=== PATIENT | female | born 1940 | race Hispanic/Latino ===

== ENCOUNTER → 2019-12-13 14:47 | Outpatient (CLI) | payer MEDICARE, SELFPAY ==
--- NOTE | 2019-12-13 14:51 | DI.RAD.S_ITS ---
PROCEDURE: XR LUMBAR SPINE 2-3V INDICATIONS: PAIN AFTER FALL TECHNIQUE: 3 views of the lumbar spine were acquired. COMPARISON: [facility], , L-SPINE 2-3 VIEWS, 07/01/2012, 10:14. FINDINGS: Bones: 5 [id number] vertebrae are present. Trace multilevel retrolisthesis. Multilevel disc degeneration, most notably and moderate at the L5-S1 level where there also is moderate facet joint arthropathy. No vertebral body compression fractures. No suspicious bony lesions. Soft tissues: Overlying bowel gas pattern is normal. No suspicious soft tissue calcifications. Cholecystectomy clips. IMPRESSION: 1. Multilevel spondylosis. Dictated by: Luis Fernando Laurent [facility] Interpreted: John Gentile MD on 12/13/2019 at 15:58 Approved by: John Gentile M.D. on 12/13/2019 at 17:40
--- NOTE | 2019-12-13 14:51 | DI.RAD.S_ITS ---
PROCEDURE: XR THORACIC SPINE 2V INDICATIONS: PAIN AFTER FALL TECHNIQUE: 3 views of the thoracic spine were acquired. COMPARISON: None. FINDINGS: Bones: No fracture. Discogenic changes. Cervical spondylosis also noted. There is mild diffuse disc space narrowing. Lateral curvature of the spine noted. Soft tissues: No paravertebral stripe thickening. IMPRESSION: No fracture Diffuse discogenic changes Dictated by: Rashad Antoine M.D. on 12/13/2019 at 15:56 Approved by: Rashad Antoine M.D. on 12/13/2019 at 15:57
== END ==
PROVIDERS: Referring Provider Student in an Organized Health Care Education/Training Program; Visit Provider Student in an Organized Health Care Education/Training Program
DX: M54.9 Dorsalgia, unspecified (principal); M47.812 Spondylosis without myelopathy or radiculopathy, cervical region; M48.02 Spinal stenosis, cervical region; M47.816 Spondylosis without myelopathy or radiculopathy, lumbar region; M47.817 Spondylosis without myelopathy or radiculopathy, lumbosacral region
CPT/HCPCS: 72070; 72100

== ENCOUNTER → 2020-01-27 09:27 | Outpatient (CLI) | payer MEDICARE, SELFPAY ==
--- NOTE | 2020-01-27 | DI.MRI.S_ITS ---
PROCEDURE: MR KNEE RT WO CON INDICATIONS: Unspecified fall, initial encounter TECHNIQUE: Noncontrast sagittal PD fast spin echo and T2 fast spin echo with fat saturation, sagittal 3-D FLASH with fat saturation; coronal T1 spin echo and PD fast spin echo with fat saturation, and axial PD fast spin echo with fat saturation through the knee. COMPARISON: None. FINDINGS: Image quality: Excellent. Menisci: Oblique tear involving posterior horn of medial meniscus is seen extending to the inferior articulating surface. Complex tear involving anterior horn of lateral meniscus is also noted extending to superior and inferior articulating surfaces. The meniscal root ligaments appear intact. Cruciate ligaments: The anterior and posterior cruciate ligaments appear intact. Medial structures: There is low to moderate grade MCL sprain near its femoral insertion. The posterior oblique ligament, semimembranosus tendon insertions, oblique popliteal ligament, and meniscocapsular junction appear intact. Visualized portions of the pes anserinus tendons appear normal. No abnormal bursal fluid. Lateral structures: The lateral collateral ligament, long and short heads of the biceps femoris tendon appear intact. The popliteus tendon appears normal; the popliteofibular ligament appears intact. The posterosuperior and anteroinferior popliteomeniscal fascicles appear intact. The arcuate and fabellofibular ligaments appear intact, on either side of the lateral inferior geniculate artery. Iliotibial band appears normal. Anterior structures: The quadriceps and patellar tendons appear intact. Patellar alignment is normal. No femoral trochlear dysplasia or ventral trochlear prominence. No edema in the infrapatellar fat pad. Bones and cartilage: No bone marrow contusions or fractures. 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 Joint space: There is moderate to large amount of joint fluid, no gross loose body.. No Costello's cyst. Normal appearing synovial plicae are incidentally noted. IMPRESSION: 1. Oblique tear involving posterior horn of medial meniscus extending to inferior articulating surface. Complex tear involving anterior horn of lateral meniscus extending to both superior and inferior articulating surfaces. 2. Cruciate ligaments are intact. Low to moderate grade MCL sprain. 3. Moderate tricompartmental osteoarthritis and chondromalacia most prominent in medial femoral tibial compartment. Moderate to large amount of joint fluid. No gross loose body. Dictated by: Marcial Craig M.D. on 01/27/2020 at 11:28 Approved by: Marcial Craig M.D. on 01/27/2020 at 12:00
== END ==
PROVIDERS: Referring Provider Internal Medicine; Visit Provider Internal Medicine
DX: S83.271A Complex tear of lateral meniscus, current injury, right knee, initial encounter (principal); S83.241A Other tear of medial meniscus, current injury, right knee, initial encounter; S83.411A Sprain of medial collateral ligament of right knee, initial encounter; M17.11 Unilateral primary osteoarthritis, right knee; M94.261 Chondromalacia, right knee; W19.XXXA Unspecified fall, initial encounter
CPT/HCPCS: 73721

== ENCOUNTER 2021-01-10 09:21 | Inpatient (IN) | payer MEDICARE, SELFPAY ==
[2021-01-10] VITALS (22 sets, daily range): BP systolic 93–137; BP diastolic 51–96; PULSE 74–126; RESP 18–27; TEMP 36.1–36.7; O2SAT 89–96; BMI 42.0
--- NOTE | 2021-01-10 09:32 | ED.GENADULT ---
HPI - General Adult General Chief complaint: Shortness of Breath/Dyspnea Stated complaint: Weak/Coughing/Poss fever Time Seen by Provider: 01/10/21 09:23 Related Data Previous Rx's Medication Instructions Recorded azithromycin 250 mg tablet See Rx Instructions .ROUTE 09/06/17 .COMPLEX #6 tab furosemide 20 mg tablet (Lasix) 20 mg PO DAILY #30 tab 09/06/17 Allergies Allergy/AdvReac Type Severity Reaction Status Date / Time No Known Drug Allergies Allergy Verified 01/10/21 09:34 Patient History Family History Brother Diabetes mellitus Grandmother Myocardial infarction Mother Diabetes mellitus Myocardial infarction Sister Diabetes mellitus Social History Smoking Status: Former smoker Smoking Status: Former smoker alcohol intake frequency: 0-2 drinks per day Substance Use Type: does not use Exam Initial Vital Signs Initial Vital Signs: Vital Signs Temperature 98.0 F 01/10/21 09:25 Pulse Rate 119 H 01/10/21 09:25 Respiratory Rate 22 01/10/21 09:25 Blood Pressure 121/96 H 01/10/21 09:25 Pulse Oximetry 93 01/10/21 09:25 Course Orders Ordered: ED Orders 01/10/21 09:31 COVID19 -Nasal swab/Pre-Proc Stat 01/10/21 09:33 XR chest 1V Stat EKG-12 Lead Stat Measure peak expiratory flow ONCE RT Consult Eval and Treat Now 01/10/21 09:40 Complete Blood Count AUTO DIFF Stat Comprehensive Metabolic Panel Stat D Dimer Stat Lactate (Lactic Acid) Stat Magnesium Stat NT-proBNP (BNP-Adult 18+) Stat Troponin I Stat 01/10/21 09:51 COVID19 - ADMIT ([employer] swab/PCR) Stat 01/10/21 09:52 Respiratory Panel (Film Array) Stat 01/10/21 10:40 Blood Culture Stat Discontinued Medications Apixaban (Apixaban 5 Mg Tablet) 5 mg PO NOW ONE Stop: 01/10/21 10:23 Last Admin: 01/10/21 10:41 Dose: 5 mg Documented by: POLO Diltiazem HCl (Diltiazem 5 Mg/Ml Sdv) 20 mg IV NOW ONE Stop: 01/10/21 10:23 Last Admin: 01/10/21 10:40 Dose: 20 mg Documented by: POLO Diltiazem HCl (Diltiazem Sr 60 Mg) 60 mg PO NOW ONE Stop: 01/10/21 10:23 Last Admin: 01/10/21 10:41 Dose: 60 mg Documented by: POLO Vital Signs Vital signs: Vital Signs - 8 hr 01/10/21 09:25 01/10/21 09:28 01/10/21 09:30 Temperature 98.0 F Pulse Rate 119 H 110 H 122 H Respiratory Rate 22 25 H Blood Pressure 121/96 H 121/96 H 130/78 Pulse Oximetry 93 91 93 01/10/21 10:00 01/10/21 10:01 01/10/21 10:30 Temperature Pulse Rate 119 H 126 H 111 H Respiratory Rate 27 H 21 25 H Blood Pressure 137/70 Pulse Oximetry 92 90 L 96 01/10/21 10:52 Temperature Pulse Rate 83 Respiratory Rate 25 H Blood Pressure 93/61 Pulse Oximetry 94 Medical Decision Making Lab Data Result diagrams: 01/10/21 09:40 01/10/21 09:40 Labs: Lab Results 01/10/21 01/10/21 01/10/21 Range/Units 09:31 09:40 09:40 WBC 11.0 (4.5-11.0) X10^3/uL RBC 5.36 H (4.0-5.2) X10^6/uL Hgb 15.7 (12.0-16.0) g/dL Hct 46.3 H (36-46) % MCV 86.2 (80-100) fL MCH 29.3 (26-34) PG MCHC 33.9 (30-36) % RDW 14.0 (11.6-14.8) % Plt Count 202 (150-400) X10^3/uL Neut % (Auto) 84.8 H (50-75) % Lymph % (Auto) 9.6 L (25-40) % [place] % (Auto) 5.3 (3-14) % Eos % (Auto) 0.0 L (2-4) % Baso % (Auto) 0.3 (0-2) % Neut # (Auto) 9300 H (6223-6084) /uL Lymph # (Auto) 1100 (2644-8118) /uL [place] # (Auto) 600 (0-900) /uL Eos # (Auto) 0 (0-450) /uL Baso # (Auto) 0 (0-100) /uL D-Dimer (<230) ng/mL Sodium 136 L (137-145) mmol/L Potassium 3.8 (3.4-5.1) mmol/L Chloride 103 (98-107) mmol/L Carbon Dioxide 22 (22-32) mmol/L BUN 16 (7-17) mg/dL Creatinine 0.88 (0.52-1.04) mg/dL Estimated GFR > 60.0 (>60) mL/min BUN/Creatinine Ratio 18.2 (6-22) Glucose 179 H (80-110) mg/dL Lactate (0.7-2.1) mmol/L Calcium 9.1 (8.4-10.2) mg/dL Magnesium 2.1 (1.6-2.3) mg/dL Total Bilirubin 0.8 (0.2-1.3) mg/dL AST 40 H (14-36) IU/L ALT 28 (<35) IU/L Alkaline Phosphatase 74 (38-126) U/L Troponin I < 0.012 (0.01-0.034) ng/mL NT-Pro-B Natriuret Pep 2290 H (<450) pg/mL Total Protein 7.0 (6.3-8.2) g/dL Albumin 3.8 (3.5-5.0) g/dL Globulin 3.2 (1.7-4.1) g/dL Albumin/Globulin Ratio 1.2 (1.0-2.8) SARS-CoV-2 (PCR) Positive H (Negative) 01/10/21 01/10/21 01/10/21 Range/Units 09:40 09:40 09:40 WBC (4.5-11.0) X10^3/uL RBC (4.0-5.2) X10^6/uL Hgb (12.0-16.0) g/dL Hct (36-46) % MCV (80-100) fL MCH (26-34) PG MCHC (30-36) % RDW (11.6-14.8) % Plt Count (150-400) X10^3/uL Neut % (Auto) (50-75) % Lymph % (Auto) (25-40) % [place] % (Auto) (3-14) % Eos % (Auto) (2-4) % Baso % (Auto) (0-2) % Neut # (Auto) (2021-7977) /uL Lymph # (Auto) (6756-0814) /uL [place] # (Auto) (0-900) /uL Eos # (Auto) (0-450) /uL Baso # (Auto) (0-100) /uL D-Dimer 479 H (<230) ng/mL Sodium (137-145) mmol/L Potassium (3.4-5.1) mmol/L Chloride (98-107) mmol/L Carbon Dioxide (22-32) mmol/L BUN (7-17) mg/dL Creatinine (0.52-1.04) mg/dL Estimated GFR (>60) mL/min BUN/Creatinine Ratio (6-22) Glucose (80-110) mg/dL Lactate 2.2 H (0.7-2.1) mmol/L Calcium (8.4-10.2) mg/dL Magnesium Cancelled (1.6-2.3) mg/dL Total Bilirubin (0.2-1.3) mg/dL AST (14-36) IU/L ALT (<35) IU/L Alkaline Phosphatase (38-126) U/L Troponin I Cancelled (0.01-0.034) ng/mL NT-Pro-B Natriuret Pep (<450) pg/mL Total Protein (6.3-8.2) g/dL Albumin (3.5-5.0) g/dL Globulin (1.7-4.1) g/dL Albumin/Globulin Ratio (1.0-2.8) SARS-CoV-2 (PCR) (Negative) 01/10/21 Range/Units 09:51 WBC (4.5-11.0) X10^3/uL RBC (4.0-5.2) X10^6/uL Hgb (12.0-16.0) g/dL Hct (36-46) % MCV (80-100) fL MCH (26-34) PG MCHC (30-36) % RDW (11.6-14.8) % Plt Count (150-400) X10^3/uL Neut % (Auto) (50-75) % Lymph % (Auto) (25-40) % [place] % (Auto) (3-14) % Eos % (Auto) (2-4) % Baso % (Auto) (0-2) % Neut # (Auto) (4563-2077) /uL Lymph # (Auto) (1156-6261) /uL [place] # (Auto) (0-900) /uL Eos # (Auto) (0-450) /uL Baso # (Auto) (0-100) /uL D-Dimer (<230) ng/mL Sodium (137-145) mmol/L Potassium (3.4-5.1) mmol/L Chloride (98-107) mmol/L Carbon Dioxide (22-32) mmol/L BUN (7-17) mg/dL Creatinine (0.52-1.04) mg/dL Estimated GFR (>60) mL/min BUN/Creatinine Ratio (6-22) Glucose (80-110) mg/dL Lactate (0.7-2.1) mmol/L Calcium (8.4-10.2) mg/dL Magnesium (1.6-2.3) mg/dL Total Bilirubin (0.2-1.3) mg/dL AST (14-36) IU/L ALT (<35) IU/L Alkaline Phosphatase (38-126) U/L Troponin I (0.01-0.034) ng/mL NT-Pro-B Natriuret Pep (<450) pg/mL Total Protein (6.3-8.2) g/dL Albumin (3.5-5.0) g/dL Globulin (1.7-4.1) g/dL Albumin/Globulin Ratio (1.0-2.8) SARS-CoV-2 (PCR) Positive H (Negative) Discharge Plan Departure Prescriptions: No Action azithromycin 250 mg tablet See Rx Instructions .ROUTE .COMPLEX Qty: 6 RF: 0 furosemide [Lasix] 20 mg tablet 20 mg PO DAILY Qty: 30 RF: 0
--- NOTE | 2021-01-10 09:33 | DI.RAD.S_ITS ---
PROCEDURE: XR CHEST 1V INDICATIONS: cough TECHNIQUE: One view of the chest was acquired. COMPARISON: [facility], CR, XR CHEST 1V, 09/06/2017, 14:05. FINDINGS: Surgical changes and devices: None. Lungs and pleura: Mild interstitial prominence is seen in both lungs. Mediastinum: Mediastinal contours appear normal. Heart size is mildly enlarged, which may be partially exaggerated due to portable technique. Bones and chest wall: No suspicious bony lesions. Overlying soft tissues appear unremarkable. Degenerative changes are seen in the spine. IMPRESSION: 1. Bilateral interstitial prominence is suspicious for mild edema/heart failure, although an atypical pneumonia could appear similarly. 2. Mild cardiomegaly. Dictated by: Lui Grullon M.D. on 01/10/2021 at 10:07 Approved by: Lui Grullon M.D. on 01/10/2021 at 10:09
[2021-01-10 09:54] LABS: Add Manual Diff / Slide Review NO; Basophils Absolute Auto 0 /uL (0-100); Basophils Percent Auto 0.3 % (0-2); Eosinophils Absolute Auto 0 /uL (0-450); Hematocrit 46.3 % (36-46); Hemoglobin 15.7 g/dL (12.0-16.0); Lymphocytes Absolute Auto 1100 /uL (1100-4500); Lymphocytes Percent Auto 9.6 % (25-40); Mean Corpuscular HGB Conc 33.9 % (30-36); Mean Corpuscular Hemoglobin 29.3 PG (26-34); Mean Corpuscular Volume 86.2 fL (80-100); Monocytes Absolute Auto 600 /uL (0-900); Monocytes Percent Auto 5.3 % (3-14); Neutrophils Absolute Auto 9300 /uL (1500-7000); Neutrophils Percent Auto 84.8 % (50-75); Platelet Count 202 X10^3/uL (150-400); Red Blood Cell Count 5.36 X10^6/uL (4.0-5.2)
[2021-01-10 09:54] LABS: COVID19 -Nasal RAPID POSITIVE (Negative)
[2021-01-10 10:10] LABS: D Dimer 479 ng/mL (<230)
[2021-01-10 10:12] LABS: Alanine Aminotransferase 28 IU/L (<35); Albumin 3.8 g/dL (3.5-5.0); Albumin Globulin Ratio 1.2 (1.0-2.8); Alkaline Phosphatase 74 U/L (38-126); Aspartate Aminotransferase 40 IU/L (14-36); BUN Creatinine Ratio 18.2 (6-22); Bilirubin Total 0.8 mg/dL (0.2-1.3); Blood Urea Nitrogen 16 mg/dL (7-17); Calcium 9.1 mg/dL (8.4-10.2); Carbon Dioxide 22 mmol/L (22-32); Chloride 103 mmol/L (98-107); Estimated Glomerular Filt Rate > 60.0 mL/min (>60); Globulin 3.2 g/dL (1.7-4.1); Glucose 179 mg/dL (80-110); HEMOLYSIS < 15 (0-50); Magnesium 2.1 mg/dL (1.6-2.3); Potassium 3.8 mmol/L (3.4-5.1); Sodium 136 mmol/L (137-145)
[2021-01-10 10:14] LABS: Lactate (Lactic Acid) 2.2 mmol/L (0.7-2.1)
--- NOTE | 2021-01-10 10:15 | ED.GENADULT ---
HPI - General Adult General Chief complaint: Shortness of Breath/Dyspnea Stated complaint: Weak/Coughing/Poss fever Time Seen by Provider: 01/10/21 09:23 Source: patient Mode of arrival: Wheelchair Limitations: no limitations History of Present Illness HPI narrative: 81-year-old woman with no significant medical history presents with a month of cough, exertional dyspnea, loss of taste and smell, and comes in today because of increasing fatigue. She typically sleeps with the head of her bed elevated so has not noticed an increase to orthopnea she does not notice increased lower extremity edema. She is not COVID vaccinated. She describes no specific fevers, has had a low-grade headache, intermittent diarrhea over the last couple of weeks without vomiting. She says over the last couple of days she has noticed an occasional palpitation but no overt chest pain. Related Data Previous Rx's Medication Instructions Recorded azithromycin 250 mg tablet See Rx Instructions .ROUTE 09/06/17 .COMPLEX #6 tab furosemide 20 mg tablet (Lasix) 20 mg PO DAILY #30 tab 09/06/17 Allergies Allergy/AdvReac Type Severity Reaction Status Date / Time No Known Drug Allergies Allergy Verified 01/10/21 09:34 Review of Systems Review of Systems Narrative: Remainder of complete review of systems is otherwise unremarkable except for that included in the HPI. Patient History Family History Brother Diabetes mellitus Grandmother Myocardial infarction Mother Diabetes mellitus Myocardial infarction Sister Diabetes mellitus Social History Smoking Status: Former smoker Smoking Status: Former smoker alcohol intake frequency: 0-2 drinks per day Substance Use Type: does not use Exam Narrative Exam Narrative: General: Healthy appearing, in no acute distress. Able to give a complete and coherent history. Well-nourished well-developed HEENT: Moist mucous membranes, normal sclera with reactive pupils, Neck: No JVD, supple Respiratory: Lungs with bibasilar crackles mid lung field on the left and base is on the right. No significant wheeze and good air movement throughout. Cardiac: Tachycardic and irregular without murmurs, no bruits Abdomen: Soft, nontender, good bowel tones, no flank pain Skin: Warm and dry, no rashes Neurologic: Grossly neurologically intact with no obvious asymmetries or abnormalities Extremities: No trauma, well perfused, no significant lower extremity edema Psych: Cooperative, appropriate insight and affect Initial Vital Signs Initial Vital Signs: Vital Signs Temperature 98.0 F 01/10/21 09:25 Pulse Rate 119 H 01/10/21 09:25 Respiratory Rate 22 01/10/21 09:25 Blood Pressure 121/96 H 01/10/21 09:25 Pulse Oximetry 93 01/10/21 09:25 Course Orders Ordered: ED Orders 01/10/21 09:31 COVID19 -Nasal swab/Pre-Proc Stat 01/10/21 09:33 XR chest 1V Stat EKG-12 Lead Stat Measure peak expiratory flow ONCE RT Consult Eval and Treat Now 01/10/21 09:40 Complete Blood Count AUTO DIFF Stat Comprehensive Metabolic Panel Stat D Dimer Stat Lactate (Lactic Acid) Stat Magnesium Stat NT-proBNP (BNP-Adult 18+) Stat Troponin I Stat 01/10/21 09:51 COVID19 - ADMIT ([employer]GER swab/PCR) Stat 01/10/21 09:52 Respiratory Panel (Film Array) Stat 01/10/21 10:40 Blood Culture Stat Discontinued Medications Apixaban (Apixaban 5 Mg Tablet) 5 mg PO NOW ONE Stop: 01/10/21 10:23 Last Admin: 01/10/21 10:41 Dose: 5 mg Documented by: POLO Diltiazem HCl (Diltiazem 5 Mg/Ml Sdv) 20 mg IV NOW ONE Stop: 01/10/21 10:23 Last Admin: 01/10/21 10:40 Dose: 20 mg Documented by: POLO Diltiazem HCl (Diltiazem Sr 60 Mg) 60 mg PO NOW ONE Stop: 01/10/21 10:23 Last Admin: 01/10/21 10:41 Dose: 60 mg Documented by: POLO Vital Signs Vital signs: Vital Signs - 8 hr 01/10/21 09:25 01/10/21 09:28 01/10/21 09:30 Temperature 98.0 F Pulse Rate 119 H 110 H 122 H Respiratory Rate 22 25 H Blood Pressure 121/96 H 121/96 H 130/78 Pulse Oximetry 93 91 93 01/10/21 10:00 01/10/21 10:01 01/10/21 10:30 Temperature Pulse Rate 119 H 126 H 111 H Respiratory Rate 27 H 21 25 H Blood Pressure 137/70 Pulse Oximetry 92 90 L 96 01/10/21 10:52 01/10/21 11:00 01/10/21 11:01 Temperature Pulse Rate 83 80 79 Respiratory Rate 25 H 24 26 H Blood Pressure 93/61 108/63 Pulse Oximetry 94 94 95 01/10/21 11:30 Temperature Pulse Rate 80 Respiratory Rate 23 Blood Pressure 107/55 L Pulse Oximetry 94 Medical Decision Making Lab Data Lab results narrative: D-dimer is within corrected normal ranges Result diagrams: 01/10/21 09:40 01/10/21 09:40 Labs: Lab Results 01/10/21 01/10/21 01/10/21 Range/Units 09:31 09:40 09:40 WBC 11.0 (4.5-11.0) X10^3/uL RBC 5.36 H (4.0-5.2) X10^6/uL Hgb 15.7 (12.0-16.0) g/dL Hct 46.3 H (36-46) % MCV 86.2 (80-100) fL MCH 29.3 (26-34) PG MCHC 33.9 (30-36) % RDW 14.0 (11.6-14.8) % Plt Count 202 (150-400) X10^3/uL Neut % (Auto) 84.8 H (50-75) % Lymph % (Auto) 9.6 L (25-40) % [place] % (Auto) 5.3 (3-14) % Eos % (Auto) 0.0 L (2-4) % Baso % (Auto) 0.3 (0-2) % Neut # (Auto) 9300 H (9861-0790) /uL Lymph # (Auto) 1100 (7335-6546) /uL [place] # (Auto) 600 (0-900) /uL Eos # (Auto) 0 (0-450) /uL Baso # (Auto) 0 (0-100) /uL D-Dimer (<230) ng/mL Sodium 136 L (137-145) mmol/L Potassium 3.8 (3.4-5.1) mmol/L Chloride 103 (98-107) mmol/L Carbon Dioxide 22 (22-32) mmol/L BUN 16 (7-17) mg/dL Creatinine 0.88 (0.52-1.04) mg/dL Estimated GFR > 60.0 (>60) mL/min BUN/Creatinine Ratio 18.2 (6-22) Glucose 179 H (80-110) mg/dL Lactate (0.7-2.1) mmol/L Calcium 9.1 (8.4-10.2) mg/dL Magnesium 2.1 (1.6-2.3) mg/dL Total Bilirubin 0.8 (0.2-1.3) mg/dL AST 40 H (14-36) IU/L ALT 28 (<35) IU/L Alkaline Phosphatase 74 (38-126) U/L Troponin I < 0.012 (0.01-0.034) ng/mL NT-Pro-B Natriuret Pep 2290 H (<450) pg/mL Total Protein 7.0 (6.3-8.2) g/dL Albumin 3.8 (3.5-5.0) g/dL Globulin 3.2 (1.7-4.1) g/dL Albumin/Globulin Ratio 1.2 (1.0-2.8) Chlamy pneumoniae PCR (Not Detect) Adenovirus (PCR) (Not Detect) B. pertussis DNA (PCR) (Not Detecte) B.parapertussis DNA PCR Coronavirus OC43 (PCR) (Not Detect) Coronavirus HKU1 (PCR) (Not Detect) Coronavirus 229E (PCR) (Not Detect) SARS-CoV-2 (PCR) Positive H (Negative) Coronavirus NL63 (PCR) (Not Detect) Human Metapneumovir PCR (Not Detect) Influenza Type A (PCR) (Not Detect) Influenza Type B (PCR) (Not Detect) M. pneumoniae (PCR) (Not Detect) Parainfluenza 1 (PCR) (Not Detect) Parainfluenza 2 (PCR) (Not Detect) Parainfluenza 3 (PCR) (Not Detect) Parainfluenza 4 (PCR) (Not Detect) RSV (PCR) (Not Detect) Entero/Rhino (PCR) (Not Detect) 01/10/21 01/10/21 01/10/21 Range/Units 09:40 09:40 09:40 WBC (4.5-11.0) X10^3/uL RBC (4.0-5.2) X10^6/uL Hgb (12.0-16.0) g/dL Hct (36-46) % MCV (80-100) fL MCH (26-34) PG MCHC (30-36) % RDW (11.6-14.8) % Plt Count (150-400) X10^3/uL Neut % (Auto) (50-75) % Lymph % (Auto) (25-40) % [place] % (Auto) (3-14) % Eos % (Auto) (2-4) % Baso % (Auto) (0-2) % Neut # (Auto) (7650-6303) /uL Lymph # (Auto) (6893-6636) /uL [place] # (Auto) (0-900) /uL Eos # (Auto) (0-450) /uL Baso # (Auto) (0-100) /uL D-Dimer 479 H (<230) ng/mL Sodium (137-145) mmol/L Potassium (3.4-5.1) mmol/L Chloride (98-107) mmol/L Carbon Dioxide (22-32) mmol/L BUN (7-17) mg/dL Creatinine (0.52-1.04) mg/dL Estimated GFR (>60) mL/min BUN/Creatinine Ratio (6-22) Glucose (80-110) mg/dL Lactate 2.2 H (0.7-2.1) mmol/L Calcium (8.4-10.2) mg/dL Magnesium Cancelled (1.6-2.3) mg/dL Total Bilirubin (0.2-1.3) mg/dL AST (14-36) IU/L ALT (<35) IU/L Alkaline Phosphatase (38-126) U/L Troponin I Cancelled (0.01-0.034) ng/mL NT-Pro-B Natriuret Pep (<450) pg/mL Total Protein (6.3-8.2) g/dL Albumin (3.5-5.0) g/dL Globulin (1.7-4.1) g/dL Albumin/Globulin Ratio (1.0-2.8) Chlamy pneumoniae PCR (Not Detect) Adenovirus (PCR) (Not Detect) B. pertussis DNA (PCR) (Not Detecte) B.parapertussis DNA PCR Coronavirus OC43 (PCR) (Not Detect) Coronavirus HKU1 (PCR) (Not Detect) Coronavirus 229E (PCR) (Not Detect) SARS-CoV-2 (PCR) (Negative) Coronavirus NL63 (PCR) (Not Detect) Human Metapneumovir PCR (Not Detect) Influenza Type A (PCR) (Not Detect) Influenza Type B (PCR) (Not Detect) M. pneumoniae (PCR) (Not Detect) Parainfluenza 1 (PCR) (Not Detect) Parainfluenza 2 (PCR) (Not Detect) Parainfluenza 3 (PCR) (Not Detect) Parainfluenza 4 (PCR) (Not Detect) RSV (PCR) (Not Detect) Entero/Rhino (PCR) (Not Detect) 01/10/21 01/10/21 Range/Units 09:51 09:52 WBC (4.5-11.0) X10^3/uL RBC (4.0-5.2) X10^6/uL Hgb (12.0-16.0) g/dL Hct (36-46) % MCV (80-100) fL MCH (26-34) PG MCHC (30-36) % RDW (11.6-14.8) % Plt Count (150-400) X10^3/uL Neut % (Auto) (50-75) % Lymph % (Auto) (25-40) % [place] % (Auto) (3-14) % Eos % (Auto) (2-4) % Baso % (Auto) (0-2) % Neut # (Auto) (2888-4039) /uL Lymph # (Auto) (3018-7967) /uL [place] # (Auto) (0-900) /uL Eos # (Auto) (0-450) /uL Baso # (Auto) (0-100) /uL D-Dimer (<230) ng/mL Sodium (137-145) mmol/L Potassium (3.4-5.1) mmol/L Chloride (98-107) mmol/L Carbon Dioxide (22-32) mmol/L BUN (7-17) mg/dL Creatinine (0.52-1.04) mg/dL Estimated GFR (>60) mL/min BUN/Creatinine Ratio (6-22) Glucose (80-110) mg/dL Lactate (0.7-2.1) mmol/L Calcium (8.4-10.2) mg/dL Magnesium (1.6-2.3) mg/dL Total Bilirubin (0.2-1.3) mg/dL AST (14-36) IU/L ALT (<35) IU/L Alkaline Phosphatase (38-126) U/L Troponin I (0.01-0.034) ng/mL NT-Pro-B Natriuret Pep (<450) pg/mL Total Protein (6.3-8.2) g/dL Albumin (3.5-5.0) g/dL Globulin (1.7-4.1) g/dL Albumin/Globulin Ratio (1.0-2.8) Chlamy pneumoniae PCR Not detected (Not Detect) Adenovirus (PCR) Not detected (Not Detect) B. pertussis DNA (PCR) Not detected (Not Detecte) B.parapertussis DNA PCR TNP Coronavirus OC43 (PCR) Not detected (Not Detect) Coronavirus HKU1 (PCR) Not detected (Not Detect) Coronavirus 229E (PCR) Not detected (Not Detect) SARS-CoV-2 (PCR) Positive H TNP (Negative) Coronavirus NL63 (PCR) Not detected (Not Detect) Human Metapneumovir PCR Not detected (Not Detect) Influenza Type A (PCR) Not detected (Not Detect) Influenza Type B (PCR) Not detected (Not Detect) M. pneumoniae (PCR) Not detected (Not Detect) Parainfluenza 1 (PCR) Not detected (Not Detect) Parainfluenza 2 (PCR) Not detected (Not Detect) Parainfluenza 3 (PCR) Not detected (Not Detect) Parainfluenza 4 (PCR) Not detected (Not Detect) RSV (PCR) Not detected (Not Detect) Entero/Rhino (PCR) Not detected (Not Detect) Imaging Data Chest x-ray: Radiologist's Impression: FINDINGS: Surgical changes and devices: None. Lungs and pleura: Mild interstitial prominence is seen in both lungs. Mediastinum: Mediastinal contours appear normal. Heart size is mildly enlarged, which may be partially exaggerated due to portable technique. Bones and chest wall: No suspicious bony lesions. Overlying soft tissues appear unremarkable. Degenerative changes are seen in the spine. IMPRESSION: 1. Bilateral interstitial prominence is suspicious for mild edema/heart failure, although an atypical pneumonia could appear similarly. 2. Mild cardiomegaly. Dictated by: Lui Grullon M.D. on 01/10/2021 at 10:07 ECG Data Interpretation: Atrial fibrillation at a rate of 115 Slight left axis deviation No acute ischemic changes MDM Narrative Medical decision making narrative: 81-year-old woman with minimal past medical history presents with new onset atrial fibrillation in the setting of COVID pneumonia. Oxygen saturations are at 93 on room air and dropped to 89-90 with exertion. Cough has been present for about a month and she was having difficulty with loss of taste about a month ago. I suspect that she is on the recovering and of her COVID pneumonia and the new atrial fibrillation was a consequence of her COVID infection. She has mild symptoms of congestive heart failure and no symptoms of impending respiratory failure. Care is reviewed with Dr Renee, who accepts admit. Discharge Plan Departure Patient Disposition: Admitted As Inpatient Clinical Impression: Atrial fibrillation with rapid ventricular response, Congestive heart failure, Pneumonia due to 2019 novel coronavirus Admit Date/Time: 01/10/21 11:59 Admit Provider: Beau Renee
[2021-01-10 10:24] LABS: NT-proBNP (BNP-Adult 18+) 2290 pg/mL (<450); Troponin I < 0.012 ng/mL (0.01-0.034)
[2021-01-10] MEDS: dilTIAZem 5 MG/ML SDV 20 MG IV (10:40)
[2021-01-10] MEDS: APIXABAN 5 MG TABLET PO ×2 (10:41→20:57)
[2021-01-10] MEDS: dilTIAZem SR 60 MG PO (10:41)
[2021-01-10 10:47] LABS: COVID19 - ADMIT (NP swab/PCR) POSITIVE (Negative)
[2021-01-10 11:21] LABS: Adenovirus Not Detected (Not Detect); Bordetella pertussis Not Detected (Not Detecte); Chlamydophila pneumoniae Not Detected (Not Detect); Coronavirus 229E Not Detected (Not Detect); Coronavirus HKU1 Not Detected (Not Detect); Coronavirus NL 63 Not Detected (Not Detect); Coronavirus OC43 Not Detected (Not Detect); Human Metapneumovirus Not Detected (Not Detect); Human Rhinovirus/Enterovirus Not Detected (Not Detect); Influenza A Not Detected (Not Detect); Influenza B Not Detected (Not Detect); Mycoplasma pneumoniae Not Detected (Not Detect); Parainfluenza Virus 1 Not Detected (Not Detect); Parainfluenza Virus 2 Not Detected (Not Detect); Parainfluenza Virus 3 Not Detected (Not Detect); Parainfluenza Virus 4 Not Detected (Not Detect); Respiratory Syncytial Virus Not Detected (Not Detect)
[2021-01-10 11:49] LABS: Reflexed Lactate in 2 Hours Y
[2021-01-10] MEDS: FUROSEMIDE 20 MG/2 ML VIAL IV ×2 (14:03→20:57)
[2021-01-10] MEDS: REMDESIVIR 200 MG in SODIUM CHLORIDE 0.9% 210 ML 250 ML IV (14:05)
[2021-01-10] MEDS: DEXAMETHASONE 10 MG/ML VIAL 6 MG IV (14:05)
[2021-01-10 14:15] LABS: TSH w/ Reflex to FT4 1.25 uIU/mL (0.47-4.68)
[2021-01-10 14:36] LABS: Lactate 2HR (Lactic Acid Rflx) 1.3 mmol/L (0.7-2.1)
--- NOTE | 2021-01-10 14:53 | PC.NURSE ---
1245 Pt to room 219 via w/c -able to transfer self to bed, change clothes, and is now resting comfortable. Oriented Pt to room, call light, bed controls, and tv controls. Bed alarm on for safety-Pt has had recent falls. SCD's on and running. Pt agrees to call for assistance as needed.
--- NOTE | 2021-01-10 18:09 | PM.HP.1 ---
History of Present Illness History of Present Illness Date Patient Seen: 01/10/21 Time Patient Seen: 14:00 Chief complaint: Weak/Coughing/Poss fever Narrative: 81W with no significant PMH who presents with a month of cough and shortness of breath. She notes this started weeks ago. She has not noted fever. She is not vaccinated against COVID. She has noted worsening lower extremity swelling and swelling in her belly. She has been having difficulty sleeping lying flat because of shortness of breath, and becomes short of breath with exertion. She has some chest pressure days ago, but none today. She has noted palpitations. She has had diarrhea and loss of smell. She has not been seen for these symptoms. Not tested for COVID. She is not on medications. In the ED workup was done, she was noted to have no fever, tachycardia in the 120s, respiratory rate in the 20s, sat as low as 90% on room air. She was placed on 2L NC. EKG showed afib with RVR. She was given IV diltiazem, then oral diltiazem. COVID+. Labs notable for WBC 11, creatinine 0.88, lactate 2.2 improved to 1.3, trop negative, BNP 2290. Respiratory panel negative. She was admitted for further treatment and evaluation. Patient History Family & Social History Family History Brother Diabetes mellitus Grandmother Myocardial infarction Mother Diabetes mellitus Myocardial infarction Sister Diabetes mellitus Social History: household members children Prior Living Arrangements House Safety & Behavioral: Feels Safe in Current Yes Environment Been Physically Hurt or No Threatened By a Person Suicidal Ideation Description None Tobacco & Substance use: Tobacco type cigarettes Smoking Status Former smoker alcohol intake never alcohol intake frequency 0-2 drinks per day Substance Use Type does not use Meds Home Medications and Allergies Home Medications Medication Instructions Recorded Confirmed Type No Known Home Medications 01/10/21 01/10/21 History Allergies Allergy/AdvReac Type Severity Reaction Status Date / Time No Known Drug Allergies Allergy Verified 01/10/21 09:34 Review of Systems Review of Systems Narrative: 14 systems reviewed and negative aside from what is noted in HPI Exam Vital Signs (past 8 hours): - 01/10/21 10:30 01/10/21 10:52 01/10/21 11:00 Temperature Pulse Rate 111 H 83 80 Respiratory Rate 25 H 25 H 24 Blood Pressure 93/61 Pulse Oximetry 96 94 94 01/10/21 11:01 01/10/21 11:30 01/10/21 12:00 Temperature Pulse Rate 79 80 74 Respiratory Rate 26 H 23 23 Blood Pressure 108/63 107/55 L 109/68 Pulse Oximetry 95 94 95 01/10/21 12:30 01/10/21 12:45 01/10/21 14:09 Temperature 97 F L Pulse Rate 81 86 Respiratory Rate 24 20 Blood Pressure 107/68 112/51 L Pulse Oximetry 95 94 94 01/10/21 17:01 01/10/21 17:10 Temperature 97.0 F L Pulse Rate 88 Respiratory Rate 24 Blood Pressure 119/75 Pulse Oximetry 94 Oxygen Delivery Method Nasal Cannula Oxygen Flow Rate 2 Narrative Exam Narrative: GEN: no acute distress HEENT: moist mucous membranes, PERRL CV: tachcyardic, irregular, no murmurs PULM: coarse breath sounds, bilateral crackles, no wheezes ABD: soft, nontender, nondistended, no organomegaly, normal bowel sounds EXT: trace edema bilaterally SKIN: no rashes noted, warm and dry NEURO: no focal deficits noted PSYCH: pleasant, cooperative, anxious Objective Labs Result Diagrams: 01/10/21 09:40 01/10/21 09:40 Labs: Laboratory Results - last 24 hr 01/10/21 01/10/21 01/10/21 09:31 09:40 09:40 WBC 11.0 RBC 5.36 H Hgb 15.7 Hct 46.3 H MCV 86.2 MCH 29.3 MCHC 33.9 RDW 14.0 Plt Count 202 Neut % (Auto) 84.8 H Lymph % (Auto) 9.6 L [place] % (Auto) 5.3 Eos % (Auto) 0.0 L Baso % (Auto) 0.3 Neut # (Auto) 9300 H Lymph # (Auto) 1100 [place] # (Auto) 600 Eos # (Auto) 0 Baso # (Auto) 0 D-Dimer Sodium 136 L Potassium 3.8 Chloride 103 Carbon Dioxide 22 BUN 16 Creatinine 0.88 Estimated GFR > 60.0 BUN/Creatinine Ratio 18.2 Glucose 179 H Lactate Calcium 9.1 Magnesium 2.1 Total Bilirubin 0.8 AST 40 H ALT 28 Alkaline Phosphatase 74 Troponin I < 0.012 NT-Pro-B Natriuret Pep 2290 H Total Protein 7.0 Albumin 3.8 Globulin 3.2 Albumin/Globulin Ratio 1.2 TSH Chlamy pneumoniae PCR Adenovirus (PCR) B. pertussis DNA (PCR) B.parapertussis DNA PCR Coronavirus OC43 (PCR) Coronavirus HKU1 (PCR) Coronavirus 229E (PCR) SARS-CoV-2 (PCR) Positive H Coronavirus NL63 (PCR) Human Metapneumovir PCR Influenza Type A (PCR) Influenza Type B (PCR) M. pneumoniae (PCR) Parainfluenza 1 (PCR) Parainfluenza 2 (PCR) Parainfluenza 3 (PCR) Parainfluenza 4 (PCR) RSV (PCR) Entero/Rhino (PCR) 01/10/21 01/10/21 01/10/21 09:40 09:40 09:40 WBC RBC Hgb Hct MCV MCH MCHC RDW Plt Count Neut % (Auto) Lymph % (Auto) [place] % (Auto) Eos % (Auto) Baso % (Auto) Neut # (Auto) Lymph # (Auto) [place] # (Auto) Eos # (Auto) Baso # (Auto) D-Dimer 479 H Sodium Potassium Chloride Carbon Dioxide BUN Creatinine Estimated GFR BUN/Creatinine Ratio Glucose Lactate 2.2 H Calcium Magnesium Cancelled Total Bilirubin AST ALT Alkaline Phosphatase Troponin I Cancelled NT-Pro-B Natriuret Pep Total Protein Albumin Globulin Albumin/Globulin Ratio TSH Chlamy pneumoniae PCR Adenovirus (PCR) B. pertussis DNA (PCR) B.parapertussis DNA PCR Coronavirus OC43 (PCR) Coronavirus HKU1 (PCR) Coronavirus 229E (PCR) SARS-CoV-2 (PCR) Coronavirus NL63 (PCR) Human Metapneumovir PCR Influenza Type A (PCR) Influenza Type B (PCR) M. pneumoniae (PCR) Parainfluenza 1 (PCR) Parainfluenza 2 (PCR) Parainfluenza 3 (PCR) Parainfluenza 4 (PCR) RSV (PCR) Entero/Rhino (PCR) 01/10/21 01/10/21 01/10/21 09:40 09:51 09:52 WBC RBC Hgb Hct MCV MCH MCHC RDW Plt Count Neut % (Auto) Lymph % (Auto) [place] % (Auto) Eos % (Auto) Baso % (Auto) Neut # (Auto) Lymph # (Auto) [place] # (Auto) Eos # (Auto) Baso # (Auto) D-Dimer Sodium Potassium Chloride Carbon Dioxide BUN Creatinine Estimated GFR BUN/Creatinine Ratio Glucose Lactate Calcium Magnesium Total Bilirubin AST ALT Alkaline Phosphatase Troponin I NT-Pro-B Natriuret Pep Total Protein Albumin Globulin Albumin/Globulin Ratio TSH 1.25 Chlamy pneumoniae PCR Not detected Adenovirus (PCR) Not detected B. pertussis DNA (PCR) Not detected B.parapertussis DNA PCR TNP Coronavirus OC43 (PCR) Not detected Coronavirus HKU1 (PCR) Not detected Coronavirus 229E (PCR) Not detected SARS-CoV-2 (PCR) Positive H TNP Coronavirus NL63 (PCR) Not detected Human Metapneumovir PCR Not detected Influenza Type A (PCR) Not detected Influenza Type B (PCR) Not detected M. pneumoniae (PCR) Not detected Parainfluenza 1 (PCR) Not detected Parainfluenza 2 (PCR) Not detected Parainfluenza 3 (PCR) Not detected Parainfluenza 4 (PCR) Not detected RSV (PCR) Not detected Entero/Rhino (PCR) Not detected 01/10/21 14:15 WBC RBC Hgb Hct MCV MCH MCHC RDW Plt Count Neut % (Auto) Lymph % (Auto) [place] % (Auto) Eos % (Auto) Baso % (Auto) Neut # (Auto) Lymph # (Auto) [place] # (Auto) Eos # (Auto) Baso # (Auto) D-Dimer Sodium Potassium Chloride Carbon Dioxide BUN Creatinine Estimated GFR BUN/Creatinine Ratio Glucose Lactate 1.3 Calcium Magnesium Total Bilirubin AST ALT Alkaline Phosphatase Troponin I NT-Pro-B Natriuret Pep Total Protein Albumin Globulin Albumin/Globulin Ratio TSH Chlamy pneumoniae PCR Adenovirus (PCR) B. pertussis DNA (PCR) B.parapertussis DNA PCR Coronavirus OC43 (PCR) Coronavirus HKU1 (PCR) Coronavirus 229E (PCR) SARS-CoV-2 (PCR) Coronavirus NL63 (PCR) Human Metapneumovir PCR Influenza Type A (PCR) Influenza Type B (PCR) M. pneumoniae (PCR) Parainfluenza 1 (PCR) Parainfluenza 2 (PCR) Parainfluenza 3 (PCR) Parainfluenza 4 (PCR) RSV (PCR) Entero/Rhino (PCR) Assessment & Plan Assessment & Plan narrative: Ms. Yates is a 81W with no known PMH who presents with progressive sob, found to have CHF exacerbation, COVID+, and afib with RVR. 1. Acute respiratory failure from acute CHF exacerbation and COVID pneumonia -short of breath, with o2 sat of 90% improved on 2L nc -xray shows interstitical prominence consistent with pulmonary edema vs atypical pneumonia, also cardiomegaly -ordered for IV lasix, fluid restriction, I/O monitoring, low salt diet for CHF -ordered for IV remdesivir and IV decadron for COVID -patient unfortunately unvaccinated for COVID -wean oxygen as able 2. Afib with rvr -new diagnosis for patient -tsh pending -afib may be in setting of infection -ordered for eliquis with CHADSVAS2 at least 3 -rate improved with IV dilt, with CHF will switch to metoprolol 3. Morbid obesity, bmi 42 -follow up with PCP for outpatient lifestyle modifications DIET: low salt, fluid restriction NO IVF DVT ppx: fully anticoagulated on apixaban CODE: Full, proxy is German Lind, son I have utilized all available immediate resources to obtain, update, or review the patient's current medications. Time Spent With Patient Critical Care time: I spent a total of [] minutes of critical care time on this patient's care today; this time is exclusive of procedural time. Quality VTE Deep Vein Thrombosis/Pulmonary Embolism Present on Admission: No
[2021-01-11] VITALS (8 sets, daily range): BP systolic 107–135; BP diastolic 66–85; PULSE 70–95; RESP 17–20; TEMP 35.4–35.9; O2SAT 92–100
[2021-01-11 05:23] LABS: Add Manual Diff / Slide Review NO; Basophils Absolute Auto 0 /uL (0-100); Basophils Percent Auto 0.4 % (0-2); Eosinophils Absolute Auto 0 /uL (0-450); Hematocrit 45.7 % (36-46); Hemoglobin 15.3 g/dL (12.0-16.0); Lymphocytes Absolute Auto 900 /uL (1100-4500); Lymphocytes Percent Auto 11.9 % (25-40); Mean Corpuscular HGB Conc 33.5 % (30-36); Mean Corpuscular Hemoglobin 28.9 PG (26-34); Mean Corpuscular Volume 86.3 fL (80-100); Monocytes Absolute Auto 600 /uL (0-900); Monocytes Percent Auto 7.3 % (3-14); Neutrophils Absolute Auto 6200 /uL (1500-7000); Neutrophils Percent Auto 80.4 % (50-75); Platelet Count 206 X10^3/uL (150-400); Red Cell Distribution Width 13.9 % (11.6-14.8); White Blood Cell Count 7.8 X10^3/uL (4.5-11.0)
[2021-01-11 05:33] LABS: BUN Creatinine Ratio 32.4 (6-22); Blood Urea Nitrogen 24 mg/dL (7-17); Calcium 9.1 mg/dL (8.4-10.2); Carbon Dioxide 24 mmol/L (22-32); Chloride 104 mmol/L (98-107); Estimated Glomerular Filt Rate > 60.0 mL/min (>60); Glucose 156 mg/dL (80-110); HEMOLYSIS < 15 (0-50); Magnesium 2.1 mg/dL (1.6-2.3); Potassium 3.8 mmol/L (3.4-5.1); Sodium 136 mmol/L (137-145)
[2021-01-11] MEDS: REMDESIVIR 100 MG in SODIUM CHLORIDE 0.9% 230 ML 250 ML IV (08:50)
[2021-01-11] MEDS: FUROSEMIDE 20 MG/2 ML VIAL 40 MG IV (08:51)
[2021-01-11] MEDS: APIXABAN 5 MG TABLET PO (08:51)
[2021-01-11] MEDS: METOPROLOL ER 50 MG TABLET PO (08:51)
[2021-01-11] MEDS: DEXAMETHASONE 10 MG/ML VIAL 6 MG IV (08:51)
--- NOTE | 2021-01-11 09:20 | P.DS_ITS ---
History of Present Illness History of Present Illness Chief complaint: Weak/Coughing/Poss fever Narrative: 81W with no significant PMH who presents with a month of cough and shortness of breath. She notes this started weeks ago. She has not noted fever. She is not vaccinated against COVID. She has noted worsening lower extremity swelling and swelling in her belly. She has been having difficulty sleeping lying flat because of shortness of breath, and becomes short of breath with exertion. She has some chest pressure days ago, but none today. She has noted palpitations. She has had diarrhea and loss of smell. She has not been seen for these symptoms. Not tested for COVID. She is not on medications. In the ED workup was done, she was noted to have no fever, tachycardia in the 120s, respiratory rate in the 20s, sat as low as 90% on room air. She was placed on 2L NC. EKG showed afib with RVR. She was given IV diltiazem, then oral diltiazem. COVID+. Labs notable for WBC 11, creatinine 0.88, lactate 2.2 i mproved to 1.3, trop negative, BNP 2290. Respiratory panel negative. She was admitted for further treatment and evaluation. Discharge Providers Provider Date of admission: 01/10/21 11:59 Discharge Date: 01/11/21 Consults: 01/10/21 13:55 Consult to Dietitian, Adult Routine Comment: Reason For Exam: scored low MNA Discharge provider: Beau Renee MD Summary Hospital Course Discharge Diagnosis: 1. Acute hypoxemic respiratory failure 2. Acute CHF exacerbation 3. Acute Covid pneumonia 4. Atrial fibrillation with RVR 5. Morbid obesity, BMI 42 Hospital Course: Ms. Yates was admitted with progressive worsening shortness of breath. She was found to have a new CHF exacerbation. She was also found to be in new atrial fibrillation with RVR. She was found to be COVID positive and did require oxygen. She was started on remdesivir and dexamethasone and had good improvement. She was diuresed with lasix. Her CHADSVASC2 was elevated and she was started on eliquis, and placed on metoprolol and her heart rate improved. She was feeling much better the next day and O2 sats were 94% on room air. Discussion was had with cardiology who recommended close follow up and outpatient ECHO. She is recommended to get the COVID vaccine when asypmtomatic. She is recommended to isolate for at least one week. She should follow up with her PCP within one week. Exam Vital Signs (past 8 hours): Oxygen Delivery Method Nasal Cannula Oxygen Flow Rate 0 Narrative Exam Narrative: GEN: no acute distress HEENT: moist mucous membranes, PERRL CV: irregular, no murmurs PULM: clear bilaterally ABD: soft, nontender, nondistended, no organomegaly, normal bowel sounds EXT: no edema SKIN: no rashes noted, warm and dry NEURO: no focal deficits noted PSYCH: pleasant, cooperative, anxious Objective Labs Result Diagrams: 01/11/21 05:01 01/11/21 05:01 [facility] Family History Brother Diabetes mellitus Grandmother Myocardial infarction Mother Diabetes mellitus Myocardial infarction Sister Diabetes mellitus Social History household members: children Smoking Status: Former smoker alcohol intake: never Discharge Plan Discharge Plan Patient Disposition: Home Provider Discharge Comment: Ms. Yates came in with shortness of breath. She was found to have new congestive heart failure. She also had a new heart arrhythmia called atrial fibrillation. She was started on new medicine for this, eliquis to lower the risk of having a stroke, lasix to help keep the fluid from building up, metoprolol to help keep the heart rate under control. She should follow up with an outpatient ultrasound of her heart, and will be referred to cardiology for this. She did have COVID, she is recommended to isolate for another week, and was encouraged to get the vaccine when she is asymptomatic. Please call at [phone] Delgado wants to see you within a week of being discharged. Discharge orders & Medications Prescriptions: New metoprolol succinate 50 mg Tablet Extended Release 24 Hr 50 mg PO DAILY Qty: 30 RF: 0 Eliquis 5 mg Tablet 5 mg PO BID Qty: 60 RF: 0 furosemide [Lasix] 20 mg tablet 20 mg PO DAILY Qty: 30 RF: 0 Medication counseling provided by Pharmacist: No Follow up/Referrals: Shelley Delgado MD [Physician] - (new afib and chf diagnosis, per Dr. Delgado follow up within one week, ) Diet/Activity/Treatments Diet: Low-sodium Visit Report/Discharge Packet Instructions: Heart-Healthy Diet, DI for Heart Failure, DI for Atrial Fibrillation, Furosemide, Metoprolol, DI for COVID-19 (Suspected or Confirmed ), About the COVID-19 Vaccine, Covid-19 Antibody Treatment Discharge Instructions Quality VTE Deep Vein Thrombosis/Pulmonary Embolism Present on Admission: No MIPS - DC The patient has current or prior documentation of left ventricular ejection fraction (LVEF) less than 40%, or moderate or severely depressed left ventricular systolic function.: No
--- NOTE | 2021-01-11 10:12 | PC.NURSE ---
Patient is alert and oriented x3, she denies pain. Up in chair eating breakfast. Lung sounds clear to auscultation. She is trialing on RA and her sats were 92%. Up with SBA to the bathroom, she is voiding fine. CORPORATE TRAVEL COUNSELOR states that patient did have a bit of a cough when ambulating to the bathroom. She appears to be comfortable now. Will help her to the bathroom in a few minutes and help her back to bed as she states that she is tired.
--- NOTE | 2021-01-11 13:37 | PC.NURSE ---
Pt IV removed. Pt is packed up and ready to go. Went over d/c instructions with Pt-discussed d/c meds, time of last and next dose, reviewed side effects of new meds: increased risk of bleeding, hypotension, increased urine output. Also discussed CHF guidelines sheet, and when to call the MD, Calling the Mail Courier to make a follow up appointment within a week, following up with her PCP, low fat low sodium diet, weighing herself daily, getting up slowly after taking her beta neeta. We also discussed remaining in isolation for the next week and until all COVID symptoms subside. Reviewed stroke education. Reviewed COVID general information and Vaccine information. Pt denies further questions and states she has lots she needs to do including getting her nails done. Reminded Pt once again that she has COVID and needs to remain in isolation for at least a week and that she must wear a mask or she is putting other people at risk for getting COVID. Pt did not respond to this recommendation and stated she would call when her sister arrives to take her home.
--- NOTE | 2021-01-11 16:22 | CM.DPC ---
DCP/Brief: Reviewed chart. Patient is a 81yr old female admitted to [facility] with fever and cough. Patient currently COVID positive. No PCP listed. Primary payor is 1)Medicare 2)[employer]. Patient medically stable for discharge home today. Patient with COVID and instructed to continue isolation when she returns home. Per RN patient with no d/c planning needs. P: Home today. KJS Discharge Planning/Care Management Advanced directive, confirm from FAMILY Start: 01/10/21 13:56 Freq: Q24H Status: Discharge Protocol: Document 01/10/21 13:57 MARISELA (Rec: 01/10/21 13:57 MARISELA [id number]) Advance Directive, confirm on record Time 13:57 Person contacted vinh Reji received No CM Discharge Assessment Start: 01/11/21 16:20 Freq: Status: Discharge Protocol: Document 01/11/21 16:20 KJS (Rec: 01/11/21 16:21 KJS [id number]) Discharge Planning Assessment Assigned Estimator Binding SIMON Harris Contact Information Vinh Oskar (sister) # Advance Directives? Yes Advance Directives on File No History Provided By Medical Record Prior Living Arrangements House Household Members children Independent with ADL's Yes Is patient alert and oriented? Yes Barriers to Discharge No Discharge Plan Home Transportation Arrangement Family Referrals Initiated None needed Review Status In Process Next Review Type Continued Stay Review
== END 2021-01-11 14:43 | disposition home or self-care (01) | DRG 177 ==
LOC: ED 10:33 → AC 12:00
PROVIDERS: Admitting Provider Internal Medicine; Emergency Provider Emergency Medicine; Referring Provider Emergency Medicine; Visit Provider Internal Medicine
DX: U07.1 COVID-19 (principal); J12.82 Pneumonia due to coronavirus disease 2019; J96.01 Acute respiratory failure with hypoxia; Z68.41 Body mass index [BMI] 40.0-44.9, adult; I50.9 Heart failure, unspecified; I48.91 Unspecified atrial fibrillation; E66.01 Morbid (severe) obesity due to excess calories; Z87.891 Personal history of nicotine dependence
CPT/HCPCS: 36415; 71045; 80048; 80053; 83605; 83735; 83880; 84443; 84484; 85025; 85379; 87040; 87633; 87635; 93005; 94760; 94762; 96374; 99284; C9803; J1100; J1940

== ENCOUNTER 2021-06-17 06:49 | Emergency (ER) | payer MEDICARE, SELFPAY ==
[2021-01-10 13:46] VITALS: BMI 42.0
[2021-06-17 06:57] VITALS: BP 219/98; PULSE 80; RESP 18; TEMP 36.3; O2SAT 98
--- NOTE | 2021-06-17 07:01 | PC.NURSE ---
pt states her left knee started hurting yesterday and the pain has increased in severity over the night. states last week while walking she felt a sharp pain shoot up her leg, she has been going to the chiropractor for the knee, she feels like something is blown up in her leg, no obvious swelling or deformity, denies any injury
--- NOTE | 2021-06-17 07:21 | ED.LOWEXIN ---
HPI - Extremity Injury (Lower) General Chief Complaint: Extremity Injury, Lower Stated Complaint: left knee swollen/pain x1 day Time Seen by Provider: 06/17/21 07:21 Source: patient Mode of arrival: Wheelchair History of Present Illness HPI Narrative: Patient is a 81-year-old female history of hypertension atrial fibrillation not taking her Eliquis, congestive heart failure presenting today with left knee pain. 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 She started noticing some knee pain yesterday but this morning she said it is quite swollen and unable to bear weight. She denies any injury. She now in the emergency department complaining of a headache, she previously did not have a headache. She is not sensitive to light or noise. She does typically get headaches. She denies any chest pain shortness of breath no palpitations. Denies any numbness tingling or weakness. Patient was admitted January 2021 for new onset atrial fibrillation and congestive heart failure she was placed on Lasix metoprolol and Eliquis. She says she has stopped those medications and started taking supplements. She does not want take Eliquis afraid of the side effects of but she is taking an aspirin daily. Related Data Previous Rx's Medication Instructions Recorded apixaban 5 mg tablet (Eliquis) 5 mg PO BID #60 tab 01/11/21 furosemide 20 mg tablet (Lasix) 20 mg PO DAILY #30 tab 01/11/21 metoprolol succinate 50 mg 50 mg PO DAILY #30 tab 01/11/21 tablet,extended release 24 hr Allergies Allergy/AdvReac Type Severity Reaction Status Date / Time No Known Drug Allergies Allergy Verified 01/10/21 09:34 Review of Systems Review of Systems Narrative: GENERAL: Denies chills, fatigue, malaise, fever, sweats, travel HEENT: Denies sinus pain, ear pain, sore throat, difficulty swallowing, neck pain RESPIRATORY: Denies dyspnea, cough, wheezing, hemoptysis, sputum. CARDIOVASCULAR: History of AFib and congestive heart failure, see HPI GASTROINTESTINAL: Denies nausea, vomiting, abdominal pain, diarrhea, constipation, melena. : Denies dysuria, frequency, incontinence, hematuria, urinary retention, flank pain. MUSCULOSKELETAL: Left knee pain, see HPI SKIN: No rash, no erythema, no pruritus NEUROLOGIC: Denies weakness, dizziness, headache, numbness, change in speech, confusion PSYCHIATRIC: No concerning psychosocial issues. 12 point review of systems is negative except for those stated above and HPI Patient History Family History Brother Diabetes mellitus Grandmother Myocardial infarction Mother Diabetes mellitus Myocardial infarction Sister Diabetes mellitus Social History household members: children Smoking Status: Former smoker alcohol intake: never Smoking Status: Former smoker alcohol intake frequency: 0-2 drinks per day Substance Use Type: does not use Exam Initial Vital Signs Initial Vital Signs: Vital Signs Temperature 97.3 F L 06/17/21 06:57 Pulse Rate 80 06/17/21 06:57 Respiratory Rate 18 06/17/21 06:57 Blood Pressure 219/98 H 06/17/21 06:57 Pulse Oximetry 98 06/17/21 06:57 GENERAL: Alert 81-year-old female in no acute distress. HEENT: Head atraumatic,EOMI, pupils reactive, face symmetric, moist mucous membranes CARDIOVASCULAR: Regular rate and rhythm without murmurs, rubs or gallops. RESPIRATORY: Breath sounds equal bilaterally, no wheezes rales or rhonchi. ABDOMEN: Soft, nontender. Normoactive bowel sounds all 4 quadrants. No guarding or rebound. EXTREMITIES: Normal range of motion, no clubbing or edema. Neurovascularly intact Left lower extremity he is able flex and extend knee without any difficulty mildly tender difficult to tell if it is swollen due to body habitus, looks similar to the right knee distal pedal pulse intact NEUROLOGICAL: Alert and oriented x4. SKIN: Warm, dry, no laceration, no petechiae, no rashes or lesions. Course Orders Ordered: ED Orders 06/17/21 07:34 XR knee LT 3V Stat Discontinued Medications Ketorolac Tromethamine (Ketorolac 30 Mg/Ml Vial) 30 mg IM NOW ONE Stop: 06/17/21 07:35 Last Admin: 06/17/21 07:54 Dose: 30 mg Documented by: NELLY Vital Signs Vital signs: Vital Signs - 8 hr 06/17/21 06:57 06/17/21 08:52 06/17/21 09:06 Temperature 97.3 F L Pulse Rate 80 68 70 Respiratory Rate 18 20 18 Blood Pressure 219/98 H 155/86 H 196/91 H Pulse Oximetry 98 96 97 [facility] - Extremity Injury (Lower) Imaging Data Extremity x-ray #1: Radiologist's Impression: PROCEDURE:? XR KNEE LT 3V ? INDICATIONS:? pain ? TECHNIQUE:? 3 views of the knee were acquired.? ? COMPARISON:? None. ? FINDINGS:? ? Bones:? No fractures or dislocations.? No suspicious bony lesions.? Moderate medial compartment joint space narrowing and small marginal osteophyte present.? Mild patellofemoral joint space narrowing with marginal osteophyte as well. ? Soft tissues:? No joint effusion.? No suspicious soft tissue calcifications.? ? ? IMPRESSION:? 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 ? ? Approved by: Kike Jordan M.D. on 06/17/2021 at 7:45? [facility] Narrative Medical decision making narrative: It sounds as though patient has had some issue with this knee in the past. She has been going to a chiropractor she says that she has previously had a knee brace but it does not state on but Pool wrap seem to help however she threw them all out. X-ray is negative. She did have some relief with Toradol. She is offered [place] but declines. Heart rate is controlled. But this time should her headache is also improved she overall feels better. She has no neuro deficits skin is not taking anticoagulation. At this time no need for imaging. I disscussed with her level of activity encouraged some light activity but no strenuous activity Patient is noted to be hypertensive she is noncompliant with her medications discussed this with her. Discharge Plan Departure Patient Disposition: Home Clinical Impression: Acute knee pain Qualifiers: Laterality: left Qualified Code(s): M25.562 - Pain in left knee Instructions: DI for Knee Sprain Activity Restrictions/Additional Instructions: *You have been diagnosed with left knee *What to do: Recommend light activity. No strenuous activity. Elevate and ice 20-30 minutes time. *Continue to take medications as directed Tylenol 650 mg every 4-6 hours if needed for [id number] pain Ibuprofen 600 mg every 6-8 hours if needed for [id number] *Follow up with your primary care provider in 2-3 days or call [phone] *Return to ER if you should have increasing pain swelling weakness numbness tingling or any new, worsening or concerning symptoms Prescriptions: No Action metoprolol succinate 50 mg Tablet Extended Release 24 Hr 50 mg PO DAILY Qty: 30 0RF Eliquis 5 mg Tablet 5 mg PO BID Qty: 60 0RF furosemide [Lasix] 20 mg tablet 20 mg PO DAILY Qty: 30 0RF
--- NOTE | 2021-06-17 07:34 | DI.RAD.S_ITS ---
PROCEDURE: XR KNEE LT 3V INDICATIONS: pain TECHNIQUE: 3 views of the knee were acquired. COMPARISON: None. FINDINGS: Bones: No fractures or dislocations. No suspicious bony lesions. Moderate medial compartment joint space narrowing and small marginal osteophyte present. Mild patellofemoral joint space narrowing with marginal osteophyte as well. Soft tissues: No joint effusion. No suspicious soft tissue calcifications. IMPRESSION: Moderate osteoarthritis without fracture Approved by: Kike Jordan M.D. on 06/17/2021 at 7:45
[2021-06-17] MEDS: KETOROLAC 30 MG/ML VIAL IM (07:54)
[2021-06-17 08:52] VITALS: BP 155/86; PULSE 68; RESP 20; O2SAT 96
[2021-06-17 09:06] VITALS: BP 196/91; PULSE 70; RESP 18; O2SAT 97
== END 2021-06-17 09:08 | disposition home or self-care (01) ==
PROVIDERS: Emergency Provider Emergency Medicine
DX: M25.562 Pain in left knee (principal); R51.9 Headache, unspecified
CPT/HCPCS: 73562; 96372; 99283; J1885

== ENCOUNTER → 2021-09-25 09:35 | Outpatient (CLI) | payer MEDICARE, SELFPAY ==
[2021-01-10 13:46] VITALS: BMI 42.0
== END ==
PROVIDERS: PCP Internal Medicine; Referring Provider Internal Medicine; Visit Provider Internal Medicine
DX: Z13.820 Encounter for screening for osteoporosis; M85.851 Other specified disorders of bone density and structure, right thigh; Z78.0 Asymptomatic menopausal state; M85.852 Other specified disorders of bone density and structure, left thigh
CPT/HCPCS: 77080

== ENCOUNTER 2023-06-08 11:02 | Emergency (ER) | payer MEDICARE, SELFPAY ==
[2021-01-10 13:46] VITALS: BMI 42.0
[2023-06-08 11:10] VITALS: BP 235/102; PULSE 85; RESP 18; TEMP 36.6; O2SAT 95; BMI 43.9
--- NOTE | 2023-06-08 11:27 | ED_ITS ---
HPI - General Adult General Chief complaint: Abdominal Pain Stated complaint: no bowel movement T-5/ has surgery T-5 Time Seen by Provider: 06/08/23 11:07 Source: patient Mode of arrival: Ambulatory History of Present Illness HPI narrative: Patient is a 83-year-old female who is here for evaluation of no bowel movement in the past 5 days. States she feels like she needs to have a bowel movement. Feels like she has stool in her rectum. Has tried to manually disimpact herself at home without improvement. Has not taken laxatives. Did take some stool softeners. Has had C-sections in the past but no other abdominal surgeries. Her stomach just feels uneasy but she has not having any nausea or vomiting. She did have surgery on her left foot 5 days ago. Is not taking opioid pain medication since that time. Reports no chronic medical problems. Related Data Previous Rx's Medication Instructions Recorded apixaban 5 mg tablet (Eliquis) 5 mg PO BID #60 tabs 01/11/21 furosemide 20 mg tablet (Lasix) 20 mg PO DAILY #30 tabs 01/11/21 metoprolol succinate 50 mg 50 mg PO DAILY #30 tabs 01/11/21 tablet,extended release 24 hr ciprofloxacin HCl 500 mg tablet 500 mg PO BID 3 days #6 tabs 06/08/23 (Cipro) Allergies Allergy/AdvReac Type Severity Reaction Status Date / Time No Known Drug Allergies Allergy Verified 01/10/21 09:34 Review of Systems Constitutional Constitutional: Reports system reviewed and no additional complaints, except as documented Cardiovascular Cardiovascular: Reports system reviewed and no additional complaints, except as documented Respiratory Respiratory: Reports system reviewed and no additional complaints, except as documented Gastrointestinal Gastrointestinal: Reports system reviewed and no additional complaints, except as documented Musculoskeletal Musculoskeletal: Reports system reviewed and no additional complaints, except as documented Integumentary/Breasts Skin/Breast: Reports system reviewed and no additional complaints, except as documented Patient History Family History Brother Diabetes mellitus Grandmother Myocardial infarction Mother Diabetes mellitus Myocardial infarction Sister Diabetes mellitus Social History household members: children Smoking Status: Former smoker alcohol intake: never Smoking Status: Former smoker alcohol intake frequency: 0-2 drinks per day Substance Use Type: does not use Exam Initial Vital Signs Initial Vital Signs: Vital Signs Temperature 97.9 F 06/08/23 11:10 Pulse Rate 85 06/08/23 11:10 Respiratory Rate 18 06/08/23 11:10 Blood Pressure 235/102 H 06/08/23 11:10 Pulse Oximetry 95 06/08/23 11:10 Oxygen Delivery Method Room Air 06/08/23 11:10 Resp Effort & Inspection: normal respiratory effort Auscultation: clear to auscultation bilaterally Cardio Rate: regular rate Rhythm: regular rhythm GI Inspection: normal to inspection and non-distended Palpation: soft and No firm Auscultation: normal bowel sounds Neuro General: patient alert, patient awake and patient oriented x3 Course Orders Ordered: ED Orders 06/08/23 11:18 Complete Blood Count AUTO DIFF Stat 06/08/23 11:26 XR abdomen 1V Stat 06/08/23 11:35 Comprehensive Metabolic Panel Stat Lipase Stat 06/08/23 12:57 CT abdomen pelvis w con Stat Discontinued Medications Ciprofloxacin (Ciprofloxacin 250 Mg Tablet) 500 mg PO NOW ONE Stop: 06/08/23 13:50 Lactulose (Lactulose 20 Gm/30 Ml Solution) 20 gm PO NOW ONE Stop: 06/08/23 11:28 Last Admin: 06/08/23 11:36 Dose: 20 gm Documented By: KOLTON Sodium Biphosphate/Sodium Phosphate (Fleets Enema) 1 each MN NOW ONE Stop: 06/08/23 11:28 Last Admin: 06/08/23 11:36 Dose: 1 each Documented By: KOLTON Vital Signs Vital signs: Vital Signs - 8 hr 06/08/23 11:10 Temperature 97.9 F Pulse Rate 85 Respiratory Rate 18 Blood Pressure 235/102 H Pulse Oximetry 95 Oxygen Delivery Method Room Air Medical Decision Making Lab Data Lab results reviewed: Yes I reviewed the patient's lab results. 06/08/23 11:18 06/08/23 11:35 Labs: Lab Results 06/08/23 06/08/23 Range/Units 11:18 11:35 WBC 11.5 H (4.5-11.0) X10^3/uL RBC 4.75 (4.0-5.2) X10^6/uL Hgb 13.9 (12.0-16.0) g/dL Hct 41.5 (36-46) % MCV 87.5 (80-100) fL MCH 29.3 (26-34) PG MCHC 33.5 (30-36) % RDW 15.0 H (11.6-14.8) % Plt Count 213 (150-400) X10^3/uL Neut % (Auto) 76.1 H (50-75) % Lymph % (Auto) 16.2 L (25-40) % Yates % (Auto) 6.0 (3-14) % Eos % (Auto) 1.2 L (2-4) % Baso % (Auto) 0.5 (0-2) % Neut # (Auto) 8700 H (4274-7535) /uL Lymph # (Auto) 1900 (4742-6356) /uL Yates # (Auto) 700 (0-900) /uL Eos # (Auto) 100 (0-450) /uL Baso # (Auto) 100 (0-100) /uL Sodium 135 L (137-145) mmol/L Potassium 4.1 (3.4-5.1) mmol/L Chloride 103 (98-107) mmol/L Carbon Dioxide 27 (22-32) mmol/L BUN 15 (7-17) mg/dL Creatinine 0.58 (0.52-1.04) mg/dL Estimated GFR > 60 (>60) mL/min BUN/Creatinine Ratio 25.9 H (6-22) Glucose 151 H (80-110) mg/dL Calcium 9.4 (8.4-10.2) mg/dL Total Bilirubin 0.8 (0.2-1.3) mg/dL AST 26 (14-36) IU/L ALT 27 (<35) IU/L Alkaline Phosphatase 77 (38-126) U/L Total Protein 6.9 (6.3-8.2) g/dL Albumin 3.8 (3.5-5.0) g/dL Globulin 3.1 (1.7-4.1) g/dL Albumin/Globulin Ratio 1.2 (1.0-2.8) Lipase 50 (23-300) U/L Imaging Data Abdominal x-ray: Radiologist's Impression: PROCEDURE: XR ABDOMEN 1V INDICATIONS: constipation TECHNIQUE: One view of the abdomen acquired. COMPARISON: None. FINDINGS: Surgical changes and devices: Apparent cholecystectomy clip. Bowel: Bowel gas pattern is normal. No abnormal volume of stool can be seen within the colon. Soft tissues: No suspicious abdominal calcifications. Visualized solid organ contours appear normal in size. Bones: No suspicious bony lesions. Age-appropriate bony degenerative changes are seen. IMPRESSION: The volume of stool within the colon is not excessive. CT scan - abdomen/pelvis: Radiologist's Impression: PROCEDURE: CT ABDOMEN PELVIS W CON INDICATIONS: abd pain, possible constipation and distention TECHNIQUE: After the administration of intravenous contrast, axial sections acquired from the lung bases to the pubic symphysis. Coronal and sagittal reformats were performed. For radiation dose reduction, the following was used: automated exposure control, adjustment of mA and/or kV according to patient size. COMPARISON: [facility], CR, XR ABDOMEN 1V, 06/08/2023, 11:57. FINDINGS: Image quality: Diagnostic. Lower Chest: A small hiatal hernia is incidentally noted. ABDOMEN: Liver: No solid mass. Simple water density liver cysts are seen. Gallbladder: Cholecystectomy. Biliary ducts: No biliary dilation. Pancreas: No ductal dilation. Spleen: Size is within normal limits. Adrenal Glands: No adrenal nodules. Kidneys and Ureters: No hydronephrosis. No solid mass. No complex renal cystic lesion which requires follow up. Stomach and Bowel: Moderate wall thickening can be seen throughout the colon, beginning at the level of the distal transverse colon. The more proximal colon is within normal limits. There is a moderate volume of stool seen within the rectum. Forming stool can be seen within the terminal ileum. The more proximal small bowel is fluid-filled and mildly distended, measuring up to 2.1 cm. Peritoneum: No peritoneal abscess is seen. No abnormal intraperitoneal fluid. No free air. Ventral Wall: No significant ventral hernia. Abdominal Nodes: No retroperitoneal or mesenteric adenopathy by size criteria. Vessels: Aorta and inferior vena cava are normal in size. PELVIS: Pelvic Organs: This patient is status post hysterectomy. No adnexal masses are seen. Bladder: No bladder wall thickening, accounting for underdistention. Pelvic Nodes: No enlarged lymph nodes. Miscellaneous: No inguinal hernias are seen. Bones: No aggressive osseous abnormality. Lumbar spine degenerative change can be seen. IMPRESSION: These imaging findings are most compatible with enterocolitis. A moderate volume of stool can be seen within the rectum, which is consistent with constipation. Additional findings: Small hiatal hernia Simple liver cysts Cholecystectomy Hysterectomy MDM Narrative Medical decision making narrative: Patient does have a benign abdominal exam. An attempt at lactulose and an enema did produce a very small amount of stool however patient's symptoms did not improve all that much. On the x-ray she had a moderate amount of stool but would not be necessarily consistent with constipation. A CT scan was ordered. No signs of bowel obstruction. She does have a generalized colitis. I did discuss this with the patient. I do feel that the patient can continue to take her laxatives and stool softeners because she does have stool in her colon but will place her on 3 days of Cipro to help with the enterocolitis. No indication for admission to the hospital. No indication for surgical consultation. She was given return precautions. She expressed understanding and agreement. Discharge Plan Departure Patient Disposition: Home Clinical Impression: Colitis Instructions: DI for Colitis Activity Restrictions/Additional Instructions: I do recommend a bland diet for the next couple days. You can continue to take the laxatives and stool softeners if you feel like they are helping. Continue the rest of your medications as directed. Contact your primary doctor for a follow-up. Prescriptions: New ciprofloxacin HCl [Cipro] 500 mg tablet 500 mg PO BID 3 Days Qty: 6 0RF No Action metoprolol succinate 50 mg Tablet Extended Release 24 Hr 50 mg PO DAILY Qty: 30 0RF Eliquis 5 mg Tablet 5 mg PO BID Qty: 60 0RF furosemide [Lasix] 20 mg tablet 20 mg PO DAILY Qty: 30 0RF Referrals: German Johnson MD [Primary Care Provider] - Stand Alone Forms: Patient Portal/API
[2023-06-08 11:29] LABS: Add Manual Diff / Slide Review NO; Basophils Absolute Auto 100 /uL (0-100); Basophils Percent Auto 0.5 % (0-2); Eosinophils Absolute Auto 100 /uL (0-450); Eosinophils Percent Auto 1.2 % (2-4); Hematocrit 41.5 % (36-46); Hemoglobin 13.9 g/dL (12.0-16.0); Lymphocytes Absolute Auto 1900 /uL (1100-4500); Lymphocytes Percent Auto 16.2 % (25-40); Mean Corpuscular HGB Conc 33.5 % (30-36); Mean Corpuscular Hemoglobin 29.3 PG (26-34); Mean Corpuscular Volume 87.5 fL (80-100); Monocytes Absolute Auto 700 /uL (0-900); Neutrophils Absolute Auto 8700 /uL (1500-7000); Neutrophils Percent Auto 76.1 % (50-75); Platelet Count 213 X10^3/uL (150-400); Red Blood Cell Count 4.75 X10^6/uL (4.0-5.2); White Blood Cell Count 11.5 X10^3/uL (4.5-11.0)
--- NOTE | 2023-06-08 11:29 | PC.NURSE ---
patient stated that she is nauseated but does not want anti nausea medication
[2023-06-08] MEDS: LACTULOSE 20 GM/30 ML SOLUTION PO (11:36)
[2023-06-08] MEDS: FLEETS ENEMA 1 EACH PR (11:36)
[2023-06-08 11:58] LABS: Alanine Aminotransferase 27 IU/L (<35); Albumin 3.8 g/dL (3.5-5.0); Albumin Globulin Ratio 1.2 (1.0-2.8); Alkaline Phosphatase 77 U/L (38-126); Aspartate Aminotransferase 26 IU/L (14-36); BUN Creatinine Ratio 25.9 (6-22); Bilirubin Total 0.8 mg/dL (0.2-1.3); Blood Urea Nitrogen 15 mg/dL (7-17); Calcium 9.4 mg/dL (8.4-10.2); Carbon Dioxide 27 mmol/L (22-32); Chloride 103 mmol/L (98-107); Estimated Glomerular Filt Rate > 60 mL/min (>60); Globulin 3.1 g/dL (1.7-4.1); Glucose 151 mg/dL (80-110); HEMOLYSIS < 15 (0-50); Lipase 50 U/L (23-300); Potassium 4.1 mmol/L (3.4-5.1); Sodium 135 mmol/L (137-145); Total Protein 6.9 g/dL (6.3-8.2)
--- NOTE | 2023-06-08 12:57 | DI.CT.S_ITS ---
PROCEDURE: CT ABDOMEN PELVIS W CON INDICATIONS: abd pain, possible constipation and distention TECHNIQUE: After the administration of intravenous contrast, axial sections acquired from the lung bases to the pubic symphysis. Coronal and sagittal reformats were performed. For radiation dose reduction, the following was used: automated exposure control, adjustment of mA and/or kV according to patient size. COMPARISON: [facility], CR, XR ABDOMEN 1V, 06/08/2023, 11:57. FINDINGS: Image quality: Diagnostic. Lower Chest: A small hiatal hernia is incidentally noted. ABDOMEN: Liver: No solid mass. Simple water density liver cysts are seen. Gallbladder: Cholecystectomy. Biliary ducts: No biliary dilation. Pancreas: No ductal dilation. Spleen: Size is within normal limits. Adrenal Glands: No adrenal nodules. Kidneys and Ureters: No hydronephrosis. No solid mass. No complex renal cystic lesion which requires follow up. Stomach and Bowel: Moderate wall thickening can be seen throughout the colon, beginning at the level of the distal transverse colon. The more proximal colon is within normal limits. There is a moderate volume of stool seen within the rectum. Forming stool can be seen within the terminal ileum. The more proximal small bowel is fluid-filled and mildly distended, measuring up to 2.1 cm. Peritoneum: No peritoneal abscess is seen. No abnormal intraperitoneal fluid. No free air. Ventral Wall: No significant ventral hernia. Abdominal Nodes: No retroperitoneal or mesenteric adenopathy by size criteria. Vessels: Aorta and inferior vena cava are normal in size. PELVIS: Pelvic Organs: This patient is status post hysterectomy. No adnexal masses are seen. Bladder: No bladder wall thickening, accounting for underdistention. Pelvic Nodes: No enlarged lymph nodes. Miscellaneous: No inguinal hernias are seen. Bones: No aggressive osseous abnormality. Lumbar spine degenerative change can be seen. IMPRESSION: These imaging findings are most compatible with enterocolitis. A moderate volume of stool can be seen within the rectum, which is consistent with constipation. Additional findings: Small hiatal hernia Simple liver cysts Cholecystectomy Hysterectomy Dictated by: Vinicio Woodward M.D. on 06/08/2023 at 12:26 Approved by: Vinicio Woodward M.D. on 06/08/2023 at 12:30
[2023-06-08 13:20] VITALS: PULSE 80; O2SAT 96
[2023-06-08 13:25] VITALS: PULSE 80; O2SAT 96
[2023-06-08 13:30] VITALS: O2SAT 97
[2023-06-08] MEDS: CIPROFLOXACIN 250 MG TABLET 500 MG PO (14:03)
[2023-06-08 14:15] VITALS: PULSE 74
[2023-06-08 14:16] VITALS: BP 195/90; PULSE 78; RESP 12; O2SAT 95
== END 2023-06-08 14:18 | disposition home or self-care (01) ==
PROVIDERS: Emergency Provider Emergency Medicine; PCP Internal Medicine
DX: K52.9 Noninfective gastroenteritis and colitis, unspecified (principal); Z79.01 Long term (current) use of anticoagulants
CPT/HCPCS: 36415; 74018; 74177; 80053; 83690; 85025; 99284; 99285

== ENCOUNTER 2023-12-26 10:21 | Emergency (ER) | payer MEDICARE, SELFPAY ==
[2021-01-10 13:46] VITALS: BMI 42.0
[2023-12-26 10:34] VITALS: BP 147/100; PULSE 83; RESP 15; TEMP 36.4; O2SAT 97; BMI 42.0
[2023-12-26 10:37] VITALS: PULSE 73; O2SAT 97
--- NOTE | 2023-12-26 10:38 | ED_ITS ---
HPI - Allergic Reaction General Chief complaint: Dental/Oral Stated complaint: Tongue is Swollen Time Seen by Provider: 12/26/23 10:32 History of Present Illness HPI narrative: Patient 83-year-old female who does not take any medication presents today with tongue swelling. She denies any new exposures. She has never had allergic reaction before she has not on MAVIS inhibitors. But she obvious tongue swelling. She is still able to manage and swallow her secretions. She denies that it is going into her neck and chest. She reports it is actually coming down a little bit she sprayed some silver something in there Related Data Previous Rx's Medication Instructions Recorded apixaban 5 mg tablet (Eliquis) 5 mg PO BID #60 tabs 01/11/21 furosemide 20 mg tablet (Lasix) 20 mg PO DAILY #30 tabs 01/11/21 metoprolol succinate 50 mg 50 mg PO DAILY #30 tabs 01/11/21 tablet,extended release 24 hr prednisone 20 mg tablet 20 mg PO DAILY #3 tabs 12/26/23 Allergies Allergy/AdvReac Type Severity Reaction Status Date / Time No Known Drug Allergies Allergy Verified 12/26/23 10:34 Patient History Family History Brother Diabetes mellitus Grandmother Myocardial infarction Mother Diabetes mellitus Myocardial infarction Sister Diabetes mellitus Social History household members: children Smoking Status: Former smoker alcohol intake: never Smoking Status: Former smoker alcohol intake frequency: 0-2 drinks per day Substance Use Type: does not use Exam Initial Vital Signs Initial Vital Signs: Vital Signs Temperature 97.5 F L 12/26/23 10:34 Pulse Rate 83 12/26/23 10:34 Respiratory Rate 15 12/26/23 10:34 Blood Pressure 147/100 H 12/26/23 10:34 Pulse Oximetry 97 12/26/23 10:34 Oxygen Delivery Method Room Air 12/26/23 10:34 GENERAL: Alert very pleasant 83-year-old female and in no acute distress. HEENT: Head atraumatic,EOMI, pupils reactive, face symmetric, moist mucous membranes MOUTH: Obvious tongue swelling able to speak managing secretions no lip or other edema CARDIOVASCULAR: Regular rate and rhythm without murmurs, rubs or gallops. RESPIRATORY: Breath sounds equal bilaterally, no wheezes rales or rhonchi. ABDOMEN: Soft, nontender. Normoactive bowel sounds all 4 quadrants. No guarding or rebound. EXTREMITIES: Normal range of motion, no clubbing or edema. Neurovascularly intact NEUROLOGICAL: Alert and oriented x4.Normal gait and speech. SKIN: Warm, dry, no laceration, no petechiae, no rashes or lesions. Course Orders Ordered: Discontinued Medications Diphenhydramine HCl (Diphenhydramine 50 Mg/Ml Vial) 25 mg IV NOW ONE Stop: 12/26/23 10:39 Last Admin: 12/26/23 10:52 Dose: 25 mg Documented By: MICHELLE Famotidine (Famotidine 20 Mg/2 Ml Vial) 20 mg IV NOW BENJA Last Admin: 12/26/23 10:57 Dose: 20 mg Documented By: MICHELLE Methylprednisolone (Methylprednisolone 125 Mg/2 Ml Vial) 125 mg IV NOW ONE Stop: 12/26/23 10:39 Last Admin: 12/26/23 10:50 Dose: 125 mg Documented By: MICHELLE Vital Signs Vital signs: Vital Signs - 8 hr 12/26/23 10:34 12/26/23 10:37 12/26/23 11:00 Temperature 97.5 F L Pulse Rate 83 73 74 Respiratory Rate 15 Blood Pressure 147/100 H Pulse Oximetry 97 97 97 Oxygen Delivery Method Room Air 12/26/23 11:30 12/26/23 12:07 Temperature Pulse Rate 62 70 Respiratory Rate 17 Blood Pressure 191/85 H Pulse Oximetry 95 96 Oxygen Delivery Method Room Air MDM - Allergic Reaction MDM Narrative Medical decision making narrative: Patient 83-year-old female presents today with tongue swelling. She has no new exposures are records report that she is supposed to be on Eliquis Lasix and metoprolol however she declines that she is taking any medications. She has certainly not on an MAVIS inhibitor. She does appear to have some angioedema and anaphylaxis but overall appears calm and no other symptoms. She reports some improvement. Initial IV Solu-Medrol and Benadryl placed. Patient is having significant improvement with medication. No requirement for epi. She has no other hives or signs of anaphylaxis. Unclear what is causing her reaction. Recommended outpatient allergy testing. Discharge Plan Departure Patient Disposition: Home Clinical Impression: Angioedema Instructions: Anaphylaxis Activity Restrictions/Additional Instructions: *You have been diagnosed with swelling of tongue and mouth *What to do: I am glad that you are feeling better this can be a life- threatening emergency. Please consider getting allergy testing. If this should return go to the nearest emergency department *Continue to take medications as directed Prednisone 20 mg once a day for 3 days *Follow up with your primary care provider in 2-3 days or call [phone] *Return to ER if you should have increased tongue swelling throat swelling difficulty breathing or any new, worsening or concerning symptoms Prescriptions: New prednisone 20 mg tablet 20 mg PO DAILY Qty: 3 0RF No Action metoprolol succinate 50 mg Tablet Extended Release 24 Hr 50 mg PO DAILY Qty: 30 0RF Eliquis 5 mg Tablet 5 mg PO BID Qty: 60 0RF furosemide [Lasix] 20 mg tablet 20 mg PO DAILY Qty: 30 0RF Referrals: Kandi Cui PA-C [Primary Care Provider] - Stand Alone Forms: Patient Portal/API
[2023-12-26] MEDS: methylPREDNISolone 125 MG/2 ML VIAL IV (10:50)
[2023-12-26] MEDS: diphenhydrAMINE 50 MG/ML VIAL 25 MG IV (10:52)
[2023-12-26] MEDS: FAMOTIDINE 20 MG/2 ML VIAL IV (10:57)
[2023-12-26 11:00] VITALS: PULSE 74; O2SAT 97
[2023-12-26 11:30] VITALS: PULSE 62; O2SAT 95
[2023-12-26 12:07] VITALS: BP 191/85; PULSE 70; RESP 17; O2SAT 96
== END 2023-12-26 12:10 | disposition home or self-care (01) ==
PROVIDERS: Emergency Provider Emergency Medicine; PCP Physician Assistant
DX: T78.3XXA Angioneurotic edema, initial encounter (principal); Z79.01 Long term (current) use of anticoagulants
CPT/HCPCS: 36415; 96374; 96375; 99284; J1200; J2919

== ENCOUNTER 2025-01-20 09:26 | Emergency (ER) | payer MEDICARE, SELFPAY ==
[2021-01-10 13:46] VITALS: BMI 42.0
[2025-01-20 09:40] VITALS: BP 226/96; PULSE 74; RESP 16; TEMP 36.9; O2SAT 97; BMI 39.6
--- NOTE | 2025-01-20 09:40 | DI.RAD.S_ITS ---
PROCEDURE: XR CHEST 1V INDICATIONS: Cough TECHNIQUE: One view of the chest was acquired. COMPARISON: [facility], CR, XR CHEST 1V, 01/10/2021, 9:44. FINDINGS: Surgical changes and devices: None. Lungs and pleura: Lungs are clear. No pleural effusions or pneumothorax. Mediastinum: Mediastinal contours appear normal. Heart size is normal. Bones and chest wall: No suspicious bony lesions. Overlying soft tissues appear unremarkable. IMPRESSION: No knife changer time, source of cough is not found. Mildly reduced inspiratory volume. Dictated by: John Gentile M.D. on 01/20/2025 at 9:58 Approved by: John Gentile M.D. on 01/20/2025 at 9:59
[2025-01-20 09:42] VITALS: BP 201/84; PULSE 75; O2SAT 96
[2025-01-20 10:00] VITALS: BP 206/95; PULSE 78; O2SAT 95
--- NOTE | 2025-01-20 10:04 | ED.URI ---
HPI - URI/Sore Throat General Chief Complaint: Upper Respiratory Symptoms Stated Complaint: coughing, fever x 7 days Time Seen by Provider: 01/20/25 09:32 History of Present Illness HPI Narrative: 85-year-old female presents with cough with green sputum production, fever, chills, body aches, for the past week unrelieved with OTC meds supplements and cough medication. Patient denies chest pain, shortness breath, dyspnea on exertion, sick contacts, nausea, vomiting, diarrhea. Other than what is stated 14 point review of system is negative. Related Data Previous Rx's ?Medication ?Instructions ?Recorded apixaban 5 mg tablet (Eliquis) 5 mg PO BID #60 tabs 01/11/21 furosemide 20 mg tablet (Lasix) 20 mg PO DAILY #30 tabs 01/11/21 metoprolol succinate 50 mg 50 mg PO DAILY #30 tabs 01/11/21 tablet,extended release 24 hr prednisone 20 mg tablet 20 mg PO DAILY #3 tabs 12/26/23 amoxicillin 875 mg-potassium 1 tab PO Q12H #14 tabs 01/20/25 clavulanate 125 mg tablet azithromycin 250 mg tablet 250 mg PO DAILY 4 days #4 tabs 01/20/25 Allergies Allergy/AdvReac Type Severity Reaction Status Date / Time No Known Drug Allergies Allergy Verified 12/26/23 10:34 Review of Systems Review of Systems ROS Unobtainable: All systems reviewed & are unremarkable except as noted in HPI and below Patient History Family History Brother Diabetes mellitus Grandmother Myocardial infarction Mother Diabetes mellitus Myocardial infarction Sister Diabetes mellitus Social History household members: children alcohol intake: never alcohol intake frequency: 0-2 drinks per day Exam Narrative Exam Narrative: GENERAL: [85] year old patient appears stated age. Well-developed patient, in mild distress. HEAD: Atraumatic. Normocephalic. EYES: Pupils equal round and reactive. Extraocular motions intact. No scleral icterus. No injection or drainage. ENT: Nose without bleeding, purulent drainage. Throat without erythema, tonsillar hypertrophy or exudate. Airway patent. NECK: Trachea midline. Non tender CARDIOVASCULAR: Regular rate and rhythm without murmurs, gallops, or rubs. RESPIRATORY: Coarse rhonchi bilateral GASTROINTESTINAL: Abdomen soft, non-tender, nondistended. EXTREMITIES: No edema or joint tenderness. BACK: Nontender without deformity or crepitance. No flank tenderness. NEURO: AOx3. SKIN: No rash or erythema of visible areas Initial Vital Signs Initial Vital Signs: Vital Signs Temperature 98.5 F 01/20/25 09:40 Pulse Rate 74 01/20/25 09:40 Respiratory Rate 16 01/20/25 09:40 Blood Pressure 226/96 H 01/20/25 09:40 Pulse Oximetry 97 01/20/25 09:40 Oxygen Delivery Method Room Air 01/20/25 09:40 Course Orders Ordered: ED Orders 01/20/25 09:39 Covid-19 + FLU A/B + RSV - PCR Stat 01/20/25 09:40 Chest [XR chest 1V] Stat Vital Signs Vital signs: Vital Signs - 8 hr 01/20/25 09:40 01/20/25 09:42 01/20/25 10:00 Temperature 98.5 F Pulse Rate 74 75 78 Respiratory Rate 16 Blood Pressure 226/96 H 201/84 H 206/95 H Pulse Oximetry 97 96 95 Oxygen Delivery Method Room Air 01/20/25 10:31 01/20/25 11:00 Temperature Pulse Rate 72 73 Respiratory Rate 16 16 Blood Pressure 182/86 H 187/85 H Pulse Oximetry 95 96 Oxygen Delivery Method Room Air MDM - URI/Sore Throat Lab Data Labs: Lab Results 01/20/25 Range/Units 09:39 SARS-CoV-2 (PCR) Negative (Negative) Influenza A (RT-PCR) Flu a negative (NEGATIVE) Influenza B (RT-PCR) Flu b negative (NEGATIVE) RSV (PCR) Negative (Negative) Imaging Data Chest x-ray: Radiologist's Impression: [address] [address] XRay Report Signed Patient: Emma Yates MR#: [id number] : 1940 Acct:[id number] Age/Sex: 85 / F Date of Service: 01/20/25 Loc: ED Accession Number: [id number] Procedure: XR chest 1V Ordering Provider: Gary Denney D.O. PROCEDURE: XR CHEST 1V INDICATIONS: Cough TECHNIQUE: One view of the chest was acquired. COMPARISON: [facility], CR, XR CHEST 1V, 01/10/2021, 9:44. FINDINGS: Surgical changes and devices: None. Lungs and pleura: Lungs are clear. No pleural effusions or pneumothorax. Mediastinum: Mediastinal contours appear normal. Heart size is normal. Bones and chest wall: No suspicious bony lesions. Overlying soft tissues appear unremarkable. IMPRESSION: No change control specialist time, source of cough is not found. Mildly reduced inspiratory volume. MDM Narrative Medical decision making narrative: All lab work, vital signs, nurse triage note, medication list, previous ER visits, and all imaging studies reviewed. COVID flu RSV negative. Chest x-ray showed mildly reduced inspiratory volume. Differential diagnosis flu RSV COVID pneumonia. DC home on Augmentin Zithromax. Follow up PCP 1-2 weeks if no improvement in symptoms. Discharge Plan Departure Patient Disposition: Home Clinical Impression: Pneumonia Qualifiers: Pneumonia type: due to Pneumococcus Laterality: bilateral Lung location: lower lobe of lung Qualified Code(s): J13 - Pneumonia due to Streptococcus pneumoniae Instructions: DI for Pneumonia -- Adult Activity Restrictions/Additional Instructions: Return with new or worsening symptoms. Follow up PCP 1-2 weeks if no improvement in symptoms. Take your medicines directed. Prescriptions: New amoxicillin-pot clavulanate 875-125 mg tablet 1 tab PO Q12H Qty: 14 0RF azithromycin 250 mg tablet 250 mg PO DAILY 4 Days Qty: 4 0RF Rx Instructions: start on day 2 of therapy No Action prednisone 20 mg tablet 20 mg PO DAILY Qty: 3 0RF metoprolol succinate 50 mg Tablet Extended Release 24 Hr 50 mg PO DAILY Qty: 30 0RF Eliquis 5 mg Tablet 5 mg PO BID Qty: 60 0RF furosemide [Lasix] 20 mg tablet 20 mg PO DAILY Qty: 30 0RF Referrals: Kandi Cui PA-C [Primary Care Provider, Medical] Stand Alone Forms: Patient Portal/API
[2025-01-20 10:26] LABS: Influenza A - CEPHEID Flu A NEGATIVE (NEGATIVE); Influenza B - CEPHEID Flu B NEGATIVE (NEGATIVE)
[2025-01-20 10:28] LABS: COVID-19 CEPHEID 4-PLEX PCR Negative (Negative)
[2025-01-20 10:31] VITALS: BP 182/86; PULSE 72; RESP 16; O2SAT 95
[2025-01-20 11:00] VITALS: BP 187/85; PULSE 73; RESP 16; O2SAT 96
[2025-01-20] MEDS: AZITHROMYCIN 250 MG TABLET 500 MG PO (11:31)
[2025-01-20] MEDS: AMOXICILLIN/CLAV 875/125 MG 1 TAB PO (11:31)
[2025-01-20 11:40] VITALS: BP 198/95; PULSE 71; RESP 16; O2SAT 95
== END 2025-01-20 11:41 | disposition home or self-care (01) ==
PROVIDERS: Emergency Provider Family Medicine; PCP Physician Assistant
DX: J13 Pneumonia due to Streptococcus pneumoniae (principal)
CPT/HCPCS: 71045; 87637; 99283